=== PATIENT | male | born 2000 | race Caucasian/White ===

== ENCOUNTER 2022-10-11 17:36 | Emergency (ER) | payer OTHER ==
[~2022-10-11] VITALS: Ht 170.2 cm; Wt 61.2 kg
[2022-10-11] MEDS ORDERED: DOCU-141 PO (17:59)
[2022-10-11] MEDS ORDERED: VALA500T34 PO (17:59)
[2022-10-11] MEDS ORDERED: VALA100026 PO (17:59)
== END 2022-10-11 18:13 | disposition home or self-care (01) ==
LOC: ER 18:01
DX: K59.00 Constipation, unspecified (principal); B00.9 Herpesviral infection, unspecified
CPT/HCPCS: A4663